=== PATIENT | female | born 1955 | race Caucasian/White ===

== ENCOUNTER 2022-01-21 09:22 | Outpatient (CLI) | payer MEDICARE, SELFPAY | END 2022-01-21 09:23 | disposition home or self-care (01) | LOC: INJ CL 09:23 | PROVIDERS: PCP Physician Assistant Medical; Visit Provider Family Medicine | DX: M53.3 Sacrococcygeal disorders, not elsewhere classified (principal) | CPT/HCPCS: 27096; J0702; Q9966 ==

== ENCOUNTER 2023-08-11 08:34 | Outpatient (CLI) | payer MEDICARE, SELFPAY ==
--- OUTSIDE RECORDS SUMMARY | 2023-08-11 08:38 | XMS_ITS | Referral Summary ---
Author Name Unknown Organization [facility] Address [address] [place] [address] Care Team Providers Care Forecast Analyst Name Role Phone No Ref-Primary, Physician Primary Care Provider Allergies Active Allergy Reactions Criticality Noted Date Comments [place] Extract Hives 09/01/2008 Social History Tobacco Use Types Packs/Day Years Used Date Smoking Tobacco: Never Smokeless Tobacco: Never Alcohol Use Standard Drinks/Week Comments Yes 0 (1 standard drink = 0.6 oz pur e alcohol) Sex and Gender Information Value Date Recorded Sex Assigned at Not on file Gender Identity Not on file Sexual Orientation Not on file Last Filed Vital Signs Vital Sign Reading Time Taken Comments Blood Pressure 149/66 01/31/2020 10:25 PM CDT Pulse - - Temperature 36.3 ??C (97.3 ??F) 01/31/2020 10:25 PM C DT Respiratory Rate 18 01/31/2020 10:25 PM CDT Oxygen Saturation 97% 01/31/2020 10:25 PM CDT Inhaled Oxygen Concentration - - Weight 72.6 kg (160 lb) 01/31/2020 10:25 PM CDT Height - - Body Mass Index - - Plan of Treatment Not on file Care Teams Forecast Analyst Relationship Specialty Start Date End Date No Ref-Primary, Physician PCP - General 01/31/20
--- OUTSIDE RECORDS SUMMARY | 2023-08-11 08:38 | XMS_ITS | Clinical Summary ---
Author Name Unknown Organization [facility] Address [address] [place] [address] Care Team Providers Care [employer] Medic Name Role Phone Gabby Melgar P.A.-C., P.A. Primary Care Pro vider Source Comments Patient records contain information from all sites at [facility]. For routine questions regarding patient records, call [phone] during business hours, M-F 8:00 AM - 5:00 PM Central Time. Record requests for emergency care only can be directed to [phone] at any time.[facility] Allergies Active Allergy Reactions Criticality Noted Date Comments Nsaids (Non-Steroidal Anti-Inflammatory Drug) Other (see comments) High 11/22/2013 Patient had bariatric surgery. Should not ever take NSAIDS due to high risk for gastric ulcers. [place] Hives (Reselect Reaction) Low 09/01/2008 Sulfa (Sulfonamide Antibiotics) Hives (Reselect Reaction) High 12/23/2018 Medications Medication Sig Dispensed Refills Start Date End Date Status cyanocobalamin (VITAMIN B12) 1,000 mcg/mL injection Inject 1,000 mcg intramuscularly every 30 (thirty) days. 0 08/20/2018 Active traMADol (ULTRAM) 50 mg tablet Take 50 mg by mouth every 6 (six) hours as needed. 0 09/22/2018 Active FLUoxetine (PROzac) 10 mg capsule Take 10 mg by mouth daily. 0 Active calcium carbonate (TUMS ULTRA) 1000 mg (400 mg calcium) chewable tablet Chew 1 tablet (400 mg of calcium total) 3 (three) times a day with meals. 270 tablet 3 07/26/2020 Active estrogens, conjugated, (PREMARIN) 1 g (0.625 mg/gram) vaginal cream Insert 1 g into the vagina at bedtime. 30 g 3 06/12/2021 Active peg 400-propylene glycol (SYSTANE) 0.4-0.3 % ophthalmic solution Administer 1 drop into both eyes 3 (three) times a day as needed for dry eyes. 0 Active sodium chloride (JOLANTA 128) 5 % ophthalmic solution Administer 1 drop into both eyes Medrol Dose Pack scheduling ONLY. 0 Active fluorometholone (FML) 0.1 % ophthalmic suspension Administer 1 drop into the right eye 3 (three) times a day for 14 days, THEN 1 drop 2 (two) times a day for 7 days, THEN 1 drop daily for 7 days. 5 mL 0 06/19/2023 4 Active Problems Problem Noted Date Diagnosed Date Preoperative Exam 04/23/2020 Last Assessment & Plan: Pre-op risk stratification - Risk of procedure - Low risk surgery - MET - > 4 - No hx of CAD, HF, CVA, DM , renal insuff - No active cardiac conditions - Cr : 1.03 on 04/23 - EKG: Ordered today. (which showed normal sinus. NO QTC prolongation) Taking Ciprofloxacin - TTE : none - Patient instructed to hold supplements, NSAIDs and ASA 7 days prior to surgery. Revised Cardiac Risk Index : 0 points. Class I risk . There is 3.9% chance of 30-day risk of , CA, or cardiac arrest. Patient may proceed the planned surgical procedure. Pyelonephritis Acute 04/18/2020 Last Assessment & Plan: - Patient recently hospitalized for bilateral flank pain and urine discoloration. - She was diagnosed with pyelonephritis. - Treated with IV ceftriaxone, and then switched to oral ciprofloxacin. (No QT prolongation) - CT showed large stone in the right renal pelvis. -- continue oral ciprofloxacin Pain Flank 07/10/2019 Degeneration Disc Lumbar 05/16/2019 Overview: Chronic low back pain, using tylenol #3 as needed. Usually gets 30 pills every 3 to 4 months. 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 - Plan for bilateral stent placement on 04/24. - H/o ureteral stent placement 3-4 years ago. Administrative Purpose Exam 12/11/2015 Other Specified Disorders Of Bladder 05/25/2014 Achlorhydria 11/22/2013 Deficiency Of Other Specified B Group Vitamins 0 11/22/2013 Surgery Bariatric Status Post 11/22/2013 Depression Major Recurrent 10/18/2013 Diverticulosis Of Large Inte tere Without Perforation Or Abscess Without Bleeding 11/20/2011 Overview: History of diverticular disease Nodule Pulmonary 09/10/2010 Overview: See by pulmonary, stable and benign, no further work-up or evaluation. Laure Banks MD .................... 06/07/2012 7:51 AM Migraine Headache 04/10/2009 Spondylolisthesis Congenital 01/07/2007 Encounters Date Type Department Care Team Description 07/20/2023 9:30 AM SOCIAL MEDIA ASSISTANT Office Visit Department of Ophthalmology in [place], [place] [address] [id number] Manas Aceves O.D. 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 Erosion Corneal Recurrent Right (Primary Dx); Endothelial Corneal Dystrophy Bilateral; Dry Eye Syndrome Bilateral; Meibomian Gland Dysfunction Left Eye Upper And Lower Eyelid; Meibomian Gland Dysfunction Right Eye Upper And Lower Eyelid; Blepharitis Left; Blepharitis Right Discharge Disposition: Home or Self Care 06/09/2023 Orders Only [facility] Gabby Melgar P.A.-C., P.A. from Last 3 Months Immunizations Name Administration Dates Next Due DTaP (Infanrix, Tripedia) 07/01/2005 Influenza, Unspecified 04/10/2009 SARS-COV-2 (COVID-19) - MODERNA(Discontinued) Family History Medical History Relation Name Comments Coronary artery disease Brother 1 Rigo Diabetes Brother 1 Rigo Diabetes Brother 2 Steve Skin cancer Father Renzo Diabetes Sister Karey Relation Name Status Comments Brother 1 Rigo Brother 2 Steve Father Renzo Sister Karey Social History Tobacco Use Types Packs/Day Years Used Date Smoking Tobacco: Former Cigarettes 0.5 5 Q uit: 1971 Smokeless Tobacco: Never Tobacco Cessation:Counseling Given: Not Answered Comments:only as a teenager Alcohol Use Standard Drinks/Week Comments Never 0 (1 standard drink = 0.6 oz pur e alcohol) Humiliation, Afraid, Rape, and Kick questionnair e Answer Date Recorded Within the last year, have y ou been afraid of your partner or ex-partner? No 07/23/2022 Within the last year, have y ou been humiliated or emotionally abused in other ways by your partner or ex-partner? No Within the last year, have y ou been kicked, hit, slapped, or otherwise physically hurt by your partner or ex-partner? No 07/23/2022 Within the last year, have y ou been raped or forced to have any kind of sexual activity by your partner or ex-partner? No 07/23/2022 Social Connection and Isolat ion Panel [NHANES] Answer Date Recorded In a typical week, how many times do you talk on the phone with family, friends, or neighbors? Three times a week 07/23/2022 How often do you get togethe r with friends or relatives? Once a week 07/23/2022 How often do you attend [facility] or christianity services? More than 4 times per year 07/23/2022 Do you belong to any clubs o r organizations such as pentecostalism groups, unions, fraternal or athletic groups, or school groups? Patient declined 07/23/2022 How often do you attend meet ings of the clubs or organizations you belong to? Patient declined 07/23/2022 Are you , , di vorced, , never , or living with a partner? 07/23/2022 AUDIT-C Answer Date Recorded Q1: How often do you have a drink containing alc ohol? Never 07/23/2022 Average Number of Drinks Not on file 023 Frequency of Binge Drinking Not on file 07/06 Overall Financial Resource Strain (CARDIA) Answe r Date Recorded How hard is it for you to pa y for the very basics like food, housing, medical care, and heating? Not very hard 07/23/2022 [facility] - Occupational Stress Questionnaire Answer Date Recorded Do you feel stress - tense, restless, nervous, or anxious, or unable to sleep at night because your mind is troubled all the time - these days? Not at all 07/23/2022 Exercise Vital Sign Answer Date Recorde d On average, how many days pe r week do you engage in moderate to strenuous exercise (like a brisk walk)? 4 days 07/23/2022 On average, how many minutes do you engage in exercise at this level? 60 min 07/23/2022 Hunger Vital Sign Answer Date Recorded Within the past 12 months, y ou worried that your food would run out before you got the money to buy more. Never true 07/23/19 23 Within the past 12 months, t he food you bought just didn't last and you didn't have money to get more. Never true 07/23/2022 PRAPARE - Transportation Answer Date Re corded In the past 12 months, has l ack of transportation kept you from medical appointments or from getting medications? No 07/06 In the past 12 months, has l ack of transportation kept you from meetings, work, or from getting things needed for daily living? No 07/23/2022 Housing Stability Vital Sign Answer Josiah e Recorded In the last 12 months, was t here a time when you were not able to pay the mortgage or rent on time? No 07/23/2022 In the last 12 months, how many places have you lived? 1 07/23/2022 In the last 12 months, was t here a time when you did not have a steady place to sleep or slept in a skilled nursing (including now)? No 07/23/2022 Nutrition Answer Date Recorded Nutrition: EVOO Fat Source Yes 07/23 On average, how many serving s of fruits and vegetables do you eat per day (serving size is equal to 1 cup or approximately the size of a tennis ball)? 2-3 07/23/2022 Dental Answer Date Recorded Dental: Regular Dentist Yes 07/10/19 Employment Answer Date Recorded Employment status Retired 07/23/2022 Education Answer Date Recorded What is the highest level of school you have completed or the highest degree you have received? Associate degree: occupational, technical, or vocational program 04/23/2020 Sex and Gender Information Value Date Recorded Sex Assigned at Female 04/23/2020 12:04 PM CDT Gender Identity Not on file Sexual Orientation Straight 07/27/2020 7: 48 PM SOCIAL MEDIA ASSISTANT Last Filed Vital Signs Vital Sign Reading Time Taken Comments Blood Pressure 105/51 11/01/2021 4:00 PM CDT Pulse 68 11/01/2021 4:00 PM CDT Temperature 36.4 ??C (97.5 ??F) 07/28/2022 2:37 PM CS T Respiratory Rate 16 09/08/2020 9:46 AM SOCIAL MEDIA ASSISTANT Oxygen Saturation 99% 11/01/2021 4:00 PM CDT Inhaled Oxygen Concentration - - Weight 72.3 kg (159 lb 6.3 oz) 07/28/2022 2:37 P M SOCIAL MEDIA ASSISTANT Height 155.3 cm (5' 1.14) 07/28/2022 2:37 PM CS T Body Mass Index 29.98 07/28/2022 2:37 PM SOCIAL MEDIA ASSISTANT Plan of Treatment Health Maintenance Due Date Last Done Comments CT Colonography 1954 Cologuard 1954 Depression Monitoring (PHQ-9) 1954 FIT 1954 Hepatitis C Screening 1955 Visit: Annual, age 65+ (or Medicare and <65) 1955 Visit: Medicare Annual Wellness 1955 Mammogram 03/15/2022 03/15/2021 (Perf ormed elsewhere), 03/07/2020 (Performed elsewhere) COVID-19 Vaccine ( season) 2023 05/15/2022, 11/01/2021, 04/01/2021, Additional history exists Fall Risk Screen (Annual) 07/06/2023 Lipid (Cholesterol) Screening 03/18/2024 03/18/2023, 03/17/2022, 03/15/2021, Additional history exists Fasting Glucose for Diabetes Screening 03/18/2026 03/18/2023, 07/28/2022, 03/17/2022, Additional history exists Colonoscopy 03/07/2030 03/07/2020 (Perf ormed elsewhere) Colorectal Cancer Screening 03/07/2030 DTaP,Tdap,and Td Vaccines (4 - Td or Tdap) 12/10/2031 12/09/2021, 04/14/2011, 07/01/2005, Additional history exists Zoster Vaccines Completed 12/28/2018, 08/06, 10/13/2014 Bone Density Scan (Osteoporosis Screen) Addressed 03/07/2020 (Performed elsewhere) Overridden with the intention of not completing the topic Pneumococcal vaccine (65+ years) Completed 03/15/2021, 03/06/2020 Influenza Vaccine Completed 03/18/2023, , 04/19/2021, Additional history exists Medical Devices Implanted Type Area Groundskeeping Maintenance Worker Device Identifier Shelf Expiration Date Model / Serial / Lot Hardware E.G. Pins/Screws/Ro ds Hardware e.g. pins/screws/r ods Back Explanted Type Area Groundskeeping Maintenance Worker Device Identifier Shelf Expiration Date Model / Serial / Lot Stnt Uret No Prc 7.0fx26 - [id number] Implanted:Qt y: 1 on 04/24/2020 by Ned Ordonez M.D. at [facility] Explanted:Qt y: 1 on 05/17/2020 at [facility] Ureteral Stent Left: [employer] [place] [employer] [id number] 11/28/2021 [id number] / / [id number] Stnt Uret No Prc 6fx26 - [id number] Implanted:Qt y: 1 on 05/17/2020 by Ned Ordonez M.D. at [facility] Explanted:Qt y: 1 on 05/28/2020 Ureteral Stent Left: [employer] [id number] 10/05/2022 [id number] / / [id number] Advance Directives For more information, please contact: [phone] Latest Code Status on File Code Status Date Activated Date Inactivated Comments Full Code 05/17/2020 11:17 AM 05/17/2020 4:34 PM Question Answer Comments Full Code: Discussed Code Status History Code Status Date Activated Date Inactivated Comments Full Code 05/08/2020 3:19 PM 05/09/2020 2:30 PM Question Answer Comments Full Code: Discussed Full Code 04/19/2020 3:04 AM 04/21/2020 4:32 PM Question Answer Comments Full Code: Discussed Care Teams [employer] Medic Relationship Specialty Start Date End Date Gabby Melgar P.A.-C., P.A. [address] [id number] PCP - General 02/20/22
--- OUTSIDE RECORDS SUMMARY | 2023-08-11 08:38 | XMS_ITS | Clinical Summary ---
Author Name Unknown Organization [facility] Address [address] [place] [address] Care Team Providers Care Roller Man Name Role Phone No Ref-Primary, Physician Primary Care Provider Allergies Active Allergy Reactions Criticality Noted Date Comments [place] Extract Hives 09/01/2008 Social History Tobacco Use [...] of Treatment Not on file Care Teams Roller Man Relationship Specialty Start Date End Date No Ref-Primary, Physician PCP - General 01/31/20
--- OUTSIDE RECORDS SUMMARY | 2023-08-11 08:39 | XMS_ITS | Clinical Summary ---
Author Name Unknown Organization [facility] Address [place], [place] [address] Care Team Providers Care Shovel Log Loader Operator Name Role Phone Kiki Corbin Primary Care Provider Allergies Active Allergy Reactions Criticality Noted Date Comments Nsaids (Non-Steroidal Anti-Inflammatory Drug) Other - Describe In Comment Field 11/22/2013 Patient had bariatric surgery. Should not ever take NSAIDS due to high risk for gastric ulcers. [place] Hives 09/01/2008 Sulfa (Sulfonamide Antibiotics) Edema 07/23/2006 Itching also Topiramate Mental Status Change 03/19/2010 Feels goofy Medications Medication Sig Dispensed Refills Start Date End Date Status SUMAtriptan (Imitrex) 50 mg tabletIndicatio ns:Intractable migraine with aura with status migrainosus Take 1 Tablet (50 mg) by mouth 2 times daily if needed for Migraine. Give at minimum 2hrs apart. Max Dose: 200mg per 24hrs. 10 Tablet 2 3 Active ciprofloxacin HCl (CIPRO) 500 mg tabletIndicatio ns:Acute UTI Take 1 Tablet (500 mg) by mouth two times daily. 10 Tablet 3 3 Active Additional Information Patient taking differently:500 mg Oral BID,PRN, Reported on 03/18/2023 estradioL (ESTRACE) 0.01% (0.1 mg/g) vaginal creamIndication s:Recurrent UTI Insert 1 g into the vagina once weekly. 42.5 g 3 3 Active trimethoprim 100 mg tabletIndicatio ns:Chronic UTI Take 1 Tablet (100 mg) by mouth once daily. 90 Tablet 3 3 Active busPIRone (BUSPAR) 15 mg tabletIndicatio ns:Anxiety Take 1 Tablet (15 mg) by mouth two times daily. 180 Tablet 3 3 Active cyanocobalamin (VITAMIN B12) 1,000 mcg/mL injectionIndica tions:Bariatric surgery status INJECT 1ML INTRAMUSCULARLY EVERY 4 WEEKS 3 mL 2 3 Active FLUoxetine (PROZAC) 40 mg capsuleIndicati ons:Anxiety,MDD (major depressive disorder), recurrent episode, moderate (HC) Take 1 Capsule (40 mg) by mouth every morning. 90 Capsule 3 3 Active traZODone (DESYREL) 50 mg tabletIndicatio ns:Anxiety,MDD (major depressive disorder), recurrent episode, moderate (HC) Take 2 Tablets (100 mg) by mouth at bedtime. 180 Tablet 0 3 Active tamsulosin (FLOMAX) 0.4 mg capsuleIndicati ons:Recurrent kidney stones Take 1 Capsule (0.4 mg) by mouth once daily after a meal. 30 Capsule 0 4 Active traMADoL (ULTRAM) 50 mg tabletIndicatio ns:Sciatica of left side Take 1 Tablet (50 mg) by mouth every 6 hours if needed for Pain. 50 Tablet 0 4 Active traMADoL (ULTRAM) 50 mg tabletIndicatio ns:Sciatica of left side Take 1 Tablet (50 mg) by mouth every 6 hours if needed for Pain. 50 Tablet 0 3 07/24/19 24 Discontinued Active Problems Problem Noted Date Diagnosed Date Generalized anxiety disorder 02/26/2018 Psychophysiological insomnia 02/26/2018 MDD (major depressive disord er), recurrent episode, moderate 04/22/2017 Nephrolithiasis 01/05/2016 Overview: Calcium oxalate stones Pain medication agreement 12/11/2015 Bladder spasms 05/25/2014 S/p Ivone-en-Y gastric bypass 11/22/2013 Achlorhydria 11/22/2013 Vitamin B12 deficiency 11/22/2013 Diverticulosis of colon (without mention of hemo rrhage) 11/20/2011 Overview: History of diverticular disease Lung nodule 09/10/2010 Overview: See by pulmonary, stable and benign, no further work-up or evaluation. Laure Banks MD .................... 06/07/2012 7:51 AM Migraine, unspecified, witho ut mention of intractable migraine without mention of status migrainosus 04/10/2009 Congenital spondylolisthesis 01/07/2007 Hyperlipidemia DDD (degenerative disc disease), lumbar Overview: Chronic low back pain, using tylenol #3 as needed. Usually gets 30 pills every 3 to 4 months. Resolved Problems Problem Noted Date Diagnosed Date Resolved Date Stage 4 chronic kidney disease 11/20/2021 04/04/2022 Nuclear senile cataract of both eyes 02/11/2018 04/04/2022 Epiretinal membrane (ERM) of left eye 02/11/2018 04/04/2022 Major depressive disorder, r ecurrent episode, in partial or unspecified remission 10/18/201303/08 Controlled substance agreement signed 05/05/2012 01/03/2014 Anxiety state, unspecified 05/05/2012 1 07/30/2013 Anemia, unspecified 11/10/2007 09/16/19 09 Major depressive disorder, r ecurrent episode, unspecified 10/29/2007 09/15/2008 Major depressive disorder, r ecurrent episode, unspecified 05/11/2007 05/30/2014 Displacement of lumbar inter vertebral disc without myelopathy 01/07/2007 04/10/2009 Headache(784.0) 07/23/2006 04/10/2009 Pain in joint, pelvic region and thigh 07/23/2006 04/10/2009 Depressive disorder, not elsewhere classified 07/23/19 07 10/29/2007 Heartburn 04/10/2009 Plantar fasciitis 05/30/2014 Snoring 04/10/2009 Glucose intolerance 05/30/20 14 Morbid obesity 05/30/2014 Encounter for screening colonoscopy 04/04/2022 Encounters Date Type Department Care Team Description 08/09/2023 Travel 07/26/2023 Travel 07/24/2023 Refill [facility] [address] [place] [address] Kiki Corbin PA Refill Request (Tramadol) 07/16/2023 1:00 PM MARINE ENGINEER Ancillary Procedure [facility] [address] [facility] [id number] 07/16/2023 10:45 AM MARINE ENGINEER Ancillary Procedure [facility] [address] [place] [address] 07/16/2023 Travel 07/14/2023 Travel 06/22/2023 Telephone [facility] [address] [place] [address] Kiki Corbin PA Imaging 06/15/2023 11:20 AM MARINE ENGINEER Office Visit [facility] [address] [place] [address] Kiki Corbin PA Leg Pain/problem (Hurt herself lifting her brother. Pain is on her L side, waist , travels down butt to the leg. Hard to lift L leg.) 06/15/2023 Travel 06/12/2023 Travel 06/05/2023 Travel 06/04/2023 11:05 AM MARINE ENGINEER E-Visit [facility] [address] [place] [address] Kiki Corbin PA eVisit for Back Pain from Last 3 Months Immunizations Name Administration Dates Next Due DTaP 07/01/2005 Influenza A (H1N1), Inactivated 05/17/2009 Influenza Virus, Unspecified 04/12/2016,03/16/20 15 Influenza, High-dose Quadriv alent Inactivated 04/12/2020 Influenza, IIV3 (Age 6-35 mos) 05/06/2011 Influenza, IIV3 (Age >=3 years) 04/08/20 13,03/30/2012,05/06/2011,2009,04/10/2009,05/17/2008,04/30/2007,1 ,05/06/1999 Influenza, IIV4 04/17/2019, 8,03/22/2018,2016,03/20/2016,04/02/2015 Influenza, Inactivated AIIV4 (Age 65+ Years) Preserv Free 03/18/2023,03/17/2022,04/19/2021 Influenza,CCIIV4 PRESERV FREE 03/20/2017 Pneumococcal Poly,23-Valent (Pneumovax) 03/15/2021 Pneumococcal conj 13-Valent (Prevnar 13) 03/06/2020 Td (Age >=7 Years) 12/09/2021,06/05/2005, 996 Tdap 04/14/2011,07/01/2005 Tuberculin (PPD) 07/09/2010 Zoster (Shingrix-RZV, recombinant) 12/28/2018, Zoster (Zostavax-ZVL, live) 10/13/2014 Family History Medical History Relation Name Comments Heart Disease Brother 1 LA @ 52 Alcoholism Brother 2 Diabetes Brother 2 Heart Disease Mother first LA at ag e 48 Alzheimer's disease Sister 1 Heart Disease Sister 1 LA @ 58 and PV D Alzheimer's disease Sister 2 Depression Sister 2 ECT treatments, then memory decline Diabetes Sister 2 Psychiatric illness Sister 3 dementia Cancer-breast No Family History Relation Name Status Comments Brother 1 Alive Brother 2 Brother 3 Alive Father (Age 82) alcohol re lated Mother (Age 64) LA @ 44 Sister 1 Sister 2 Sister 3 Alive Social History Tobacco Use Types Packs/Day Years Used Date Smoking Tobacco: Former Cigarettes Q uit: 07/06/1973 Smokeless Tobacco: Never Tobacco Cessation:Counseling Given: Yes Comments:quit 30 years ago Alcohol Use Standard Drinks/Week Comments No 0 (1 standard drink = 0.6 oz pur e alcohol) PHQ-2 Answer Date Recorded PHQ-2 TOTAL SCORE 1 03/18/2023 Social Connections Answer Date Recorded Frequency of Communication with Friends and Fami ly 0 03/18/2023 Financial Resource Strain Answer Date R ecorded Difficulty of Paying Living Expenses 3 03/18/2023 Difficulty of Paying Living Expenses Not on file 03/18/2023 Food Insecurity Answer Date Recorded Worried About Running Out of Food in the Last Ye ar 1 03/18/2023 Transportation Needs Answer Date Record ed Lack of Transportation (Medical) 1 03/18/2023 Housing Stability Answer Date Recorded Unable to Pay for Housing in the Last Year 1 03/18/2023 Sex and Gender Information Value Date Recorded Sex Assigned at Not on file Gender Identity Not on file Sexual Orientation Not on file Obstetrics History Para Term AB IAB SAB Ectopic Multiple Livin g Live Births 2 2 2 Date Outcome GA Total Labor Labor/2nd/3rd Weight Sex Delivery Anes PTL Saima A1 A5 Name Cl in Para Para Last Filed Vital Signs Vital Sign Reading Time Taken Comments Blood Pressure 136/75 06/15/2023 11:21 AM MARINE ENGINEER Pulse 58 06/15/2023 11:21 AM MARINE ENGINEER Temperature 36.3 ??C (97.4 ??F) 07/18/2019 2:05 PM CS T Respiratory Rate 16 09/09/2018 9:28 AM MARINE ENGINEER Oxygen Saturation 99% 03/18/2023 10:05 AM CDT Inhaled Oxygen Concentration - - Weight 73.5 kg (162 lb) 06/15/2023 11:21 AM MARINE ENGINEER Height 156 cm (5' 1.42) 03/18/2023 10:05 AM CDT Body Mass Index 30.2 03/18/2023 10:05 AM CDT Plan of Treatment Upcoming Encounters Date Type Department Care Team (Late st Contact Info) Description 08/11/2023 9:00 AM MARINE ENGINEER Office Visit [facility] [address] [place] [phone] Manas [place] MD [address] [place] [address] Arrived Health Maintenance Due Date Last Done Comments COVID-19 vaccine series (2022- season) 2023 05/15/2022, 11/01/2021, 04/01/2021, Additional history exists BMI (ht and wt on same day) for age 18+ 03/18/2024 03/18/2023, 03/17/2022, 03/15/2021, Additional history exists Mammogram for age 45-75 03/18/2024 03/18/20 23, 03/17/2022, 03/15/2021, Additional history exists Medicare Wellness for age 65+ 03/18/2024, 03/17/2022, 03/15/2021, Additional history exists Depression screening for age 12+ 03/20/2024 03/20/2023, 03/19/2023, 03/18/2023, Additional history exists Colonoscopy through age 75 10/02/2027 10/01/2017 Lipids for age 45-75 03/18/2028 03/18/2023, 03/17/2022, 03/15/2021, Additional history exists Tetanus booster 12/10/2031 12/09/2021, 04/05, 07/01/2005, Additional history exists Tdap Completed 04/14/2011, 07/01/2005 Hepatitis C screening for ag e 18-79 Completed 06/25/2018 Zoster (shingles) series for age 50+ Completed 12/28/2018, 08/20/2018, 10/13/2014 DEXA/DXA scan for age 65+ Completed 2019, 12/21/2014, 10/29/2007 Pneumococcal series for age 65+ Completed , 03/06/2020 Influenza for age 65+ Completed 03/18/2023 , 03/17/2022, 04/19/2021, Additional history exists Medical Devices Implanted Type Area Gps Navigation Installer Device Identifier Shelf Expiration Date Model / Serial / Lot [id number] [facility] 14x26 [[id number]] Implanted:Qty: 1 on 11/10/2007 at [facility] Explanted:at [facility] (Quantity not on file) Spine [employer] 08/03/2011 [id number]# / [id number] / Connector Small Offset Implanted:Qty: 6 on 11/10/2007 at [facility] Explanted:at [facility] (Quantity not on file) Spine [id number] / / Description:CONNECTOR SMALL OFFSET José Miguel La Rad 60mm 108mm Radius - [id number] Implanted:Qty: 2 on 11/10/2007 at [facility] Spine HOW[employer]ICA [id number]# / / [id number] one Canclls Crushed 30cc [[id number]] Implanted:Qty: 1 on 11/10/2007 at [facility] Explanted:at [facility] (Quantity not on file) Spine Allosource 01/31/2012 [id number]# / [id number] / [id number] one Canclls Crushed 30cc [] Implanted:Qty: 1 on 11/10/2007 at [facility] Explanted:at [facility] (Quantity not on file) Spine Allosource 01/31/2012 [id number]# / [id number] / [id number] Precision 16x26 Fz [[id number]] Implanted:Qty: 1 on 11/10/2007 at [facility] Explanted:at [facility] (Quantity not on file) Spine [employer] 08/04/2011 [id number]# / [id number] / Infuse Bone Graft Med Implanted:Qty: 1 on 11/10/2007 at [facility] Spine Medtronic 02/03/2010 [id number] / / [id number] Description:INFUSE BONE CHRIS T MED Screw Low Profile 6.5x30mm [id number] - [id number] Implanted:Qty: 1 on 11/10/2007 at [facility] Spine SOFAMOR DANEK [id number]# / / Washer 17mm - [id number] Implanted:Qty: 1 on 11/10/2007 at [facility] Spine SOFAMOR DANEK [id number]# / / Screw Post 6.5x40mm Std Trio Thoraco-Lmbr - [id number] Implanted:Qty: 5 on 11/10/2007 at [facility] Spine [employer] [id number]# / / Screw Post 6.5x45mm Std Trio Thoraco-Lmbr - [id number] Implanted:Qty: 1 on 11/10/2007 at [facility] Spine [employer] [id number]# / / Kit Realize Gastric Band C Dissector - [id number] Implanted:Qty: 1 on 11/16/2008 at [facility] Abdomen [employer] [id number]# / / [id number] Mesh Ventral 60 Seamguard [employer] White/Blue - [id number] Implanted:Qty: 1 on 11/21/2013 at [facility] N/A: Abdomen [employer] [id number] # / / [id number] Stent Uret [id number] Percuflex Hydroplus - [id number] Implanted:Qty: 1 on 01/11/2016 by Umer Stanley MD at [facility] Left: Ureter [facility] 09/17/2018 [id number]# / / [id number] Procedures Procedure Name Priority Date/Time Associated Diagnosis Comments AMB EPIDURAL STEROID INJECTION Routine 08/11/2023 8:29 AM MARINE ENGINEER Sciatica of left side MR SPINE LUMBAR WO Routine 07/16/2023 1: 53 PM MARINE ENGINEER Sciatica of left side XR SPINE LUMBAR 3 VIEWS Routine 07/16/2023 11:04 AM MARINE ENGINEER Sciatica of left side from Last 3 Months Results * MR SPINE LUMBAR WO (07/16/2023 1:53 PM MARINE ENGINEER) Anatomical Region Laterality Modality Spine, LUMBAR SPINE Magnetic Res onance 07/16/2023 2:16 PM MARINE ENGINEER Impressions 07/16/2023 2:16 PM MARINE ENGINEER 1. Normal alignment. No fractures. 2. Mature postop changes L4-5 and L5-S1. Associated laminectomies. 3. Lumbar spondylosis. 4. At L1-2, mild narrowing of the right neural foramen 5. At L3-4, disc degeneration. Diffuse disc bulge and endplate osteophytic ridging. No narrowing of the spinal canal. No neural foraminal narrowing. 6. No spinal canal or neural foraminal narrowing at the remaining levels Dictated by Marcio Montano MD @ 07/16/2023 2:16:20 PM (Electronically Signed) Narrative 07/16/2023 2:16 PM MARINE ENGINEER For Patients: ??As a result of the Cures Act, medical imaging exams and procedure reports are released immediately into your electronic medical record. ??You may view this report before your referring provider. ??If you have questions, please contact your health care provider. INDICATION: Left sciatica. Left-sided weakness. COMPARISON: 12/17/2021. Technique Sagittal T1, T2, and STIR sequences. Axial T1 and T2 weighted sequences. FINDINGS: Normal vertebral body alignment. No fractures. No vertebral body loss of height. No spondylolisthesis. No ligamentous injury. Normal marrow signal. No suspicious osseous lesions. Mature postoperative changes of diskectomy and interbody fusion L4-5 and L5-S1 with laminectomy and posterior josé miguel and transpedicular screw fixation L4-S1. Associated laminectomies. Associated mild edema within the posterior soft tissues operative bed. No suspicious osseous lesions. Number conus terminates at L1. T11-12: Disc degeneration and posterior disc bulge. No narrowing of spinal canal. Mild narrowing of bilateral foramina. T12-L1: No spinal canal neural foraminal narrowing. L1-2: Disc degeneration diffuse disc bulge eccentric to the right. No narrowing of the spinal canal. Mild narrowing of the right neural foramen. No narrowing of the left neural foramen. L2-3: Disc degeneration. Posterior disc bulge. No narrowing of the spinal canal. No neural foraminal narrowing. L3-4: Disc degeneration loss disc height. Mild Modic type 1 endplate changes. Diffuse disc bulge and endplate osteophytic ridging. No narrowing of spinal canal. No neural foraminal narrowing. L4-5: Postop changes. No narrowing of the spinal canal. No neural foraminal narrowing. L5-S1: Postoperative changes. No narrowing of spinal canal. No impingement of the traversing S1 nerve roots. No neural foraminal narrowing. Degenerative changes of the SI joints. Procedure Note Marcio Montano MD, PhD - 07/16/2023 For Patients: As a result of the Century Cures Act, medical imagingexams and procedure reports are released immediately into your electronicmedical record. You may view this report before your referring provider.If you have questions, please contact your health care provider. INDICATION: Left sciatica. Left-sided weakness. COMPARISON: 12/17/2021. Technique Sagittal T1, T2, and STIR sequences. Axial T1 and T2 weightedsequences. FINDINGS: Normal vertebral body alignment. No fractures. No vertebral body loss ofheight. No spondylolisthesis. No ligamentous injury. Normal marrow signal.No suspicious osseous lesions. Mature postoperative changes of diskectomy and interbody fusion L4-5 andL5-S1 with laminectomy and posterior josé miguel and transpedicular screw fixationL4-S1. Associated laminectomies. Associated mild edema within the posterior soft tissues operative bed. No suspicious osseous lesions. Number conus terminates at L1. T11-12: Disc degeneration and posterior disc bulge. No narrowing of spinalcanal. Mild narrowing of bilateral foramina. T12-L1: No spinal canal neural foraminal narrowing. L1-2: Disc degeneration diffuse disc bulge eccentric to the right. Nonarrowing of the spinal canal. Mild narrowing of the right neural foramen.No narrowing of the left neural foramen. L2-3: Disc degeneration. Posterior disc bulge. No narrowing of the spinalcanal. No neural foraminal narrowing. L3-4: Disc degeneration loss disc height. Mild Modic type 1 endplatechanges. Diffuse disc bulge and endplate osteophytic ridging. No narrowingof spinal canal. No neural foraminal narrowing. L4-5: Postop changes. No narrowing of the spinal canal. No neuralforaminal narrowing. L5-S1: Postoperative changes. No narrowing of spinal canal. No impingementof the traversing S1 nerve roots. No neural foraminal narrowing. Degenerative changes of the SI joints. IMPRESSION: 1. Normal alignment. No fractures. 2. Mature postop changes L4-5 and L5-S1. Associated laminectomies. 3. Lumbar spondylosis. 4. At L1-2, mild narrowing of the right neural foramen 5. At L3-4, disc degeneration. Diffuse disc bulge and endplate osteophyticridging. No narrowing of the spinal canal. No neural foraminal narrowing. 6. No spinal canal or neural foraminal narrowing at the remaining levels Dictated by Marcio Montano MD @ 07/16/2023 2:16:20 PM (Electronically Signed) Kiki GUERRERO MR * XR SPINE LUMBAR 3 VIEWS (07/16/2023 11:04 AM MARINE ENGINEER) Anatomical Region Laterality Modality LUMBAR SPINE Computed Radiogr aphy 07/16/2023 3:06 PM MARINE ENGINEER Addenda Addendum by Antonio Garcia MD on 07/16/2023 3:08 PM MARINE ENGINEER For Patients: ??As a result of the 21st Century Cures Act, medical imaging exams and procedure reports are released immediately into your electronic medical record. ??You may view this report before your referring provider. ?? If you have questions, please contact your health care provider. New foci of radiodensity possibly some nonobstructing radiopaque calculi projecting over the left kidney. These are minimally more prominent or new since prior exam. Dictated by Antonio Garcia MD @ Jul 16 2023 ??3:08PM (Electronically Signed) Pediatric and Body Radiology [email or web address] ?? Impressions 07/16/2023 3:06 PM MARINE ENGINEER No visualized fracture. Alignments anatomic. Joint spaces unremarkable. Posterior lumbar stabilization hardware remains intact. Posterior hardware placement at L4 through S1 levels with interbody bone graft and anterior stabilization changes at L5-S1 Stable anatomic postoperative alignment No acute or suspicious bone lesion. COMPARISON: 12/09/2021. Dictated by Antonio Garcia MD @ Jul 16 2023 ??3:06PM (Electronically Signed) [facility]iology [email or web address] ?? Narrative 07/16/2023 3:06 PM MARINE ENGINEER For Patients: ??As a result of the Cures Act, medical imaging exams and procedure reports are released immediately into your electronic medical record. ??You may view this report before your referring provider. ??If you have questions, please contact your health care provider. 3 VIEWS lumbar spine INDICATION: Sciatic pain Procedure Note Antonio Garcia MD - 07/16/2023 For Patients: As a result of the Cures Act, medical imagingexams and procedure reports are released immediately into your electronicmedical record. You may view this report before your referring provider.If you have questions, please contact your health care provider. 3 VIEWS lumbar spine INDICATION: Sciatic pain IMPRESSION: No visualized fracture. Alignments anatomic. Joint spaces unremarkable. Posterior lumbar stabilization hardware remains intact. Posterior hardware placement at L4 through S1 levels with interbody bonegraft and anterior stabilization changes at L5-S1 Stable anatomic postoperative alignment No acute or suspicious bone lesion. COMPARISON: 12/09/2021. Dictated by Antonio Garcia MD @ Jul 16 2023 3:06PM (Electronically Signed) Pediatric [facility] Body Radiology [email or web address] Kiki GUERRERO GENERAL IMAGING from Last 3 Months Advance Directives Documents on File Type Date Recorded Patient Events Specialist Expl anation Healthcare Directive 12/07/2013 9:47 PM 11/03 10/17 Latest Code Status on File Code Status Date Activated Date Inactivated Comments Full Code 10/01/2017 11:45 AM 10/01/2017 4:25 PM Code Status History Code Status Date Activated Date Inactivated Comments Full Code 04/21/2017 5:24 PM 04/24/2017 6:38 PM Full Code 02/05/2017 1:51 PM 02/05/2017 7:45 PM Full Code 01/11/2016 10:13 AM 01/11/2016 5:55 PM Full Code 11/21/2013 9:50 AM 11/23/2013 6:27 PM Care Teams Shovel Log Loader Operator Relationship Specialty Start Date End Date Kiki Corbin PA [address] [place] [address] PCP - General Family Practice 08/22/13
--- OUTSIDE RECORDS SUMMARY | 2023-08-11 08:39 | XMS_ITS | Encounter Summary ---
Author Name Unknown Organization [facility] Address [address] [place] [address] Care Team Providers Care Route Rider Supervisor Name Role Phone Gabby Melgar P.A.-C., P.A. Primary Care Pro vider Reason for Referral * Outpatient (Routine) - Authorized Specialty Diagnoses / Procedures Referred By Contac t Referred To Contact Family Medicine Gabby Melgar P.A.-C., P.A. [address] [phone] [facility] Region Referral ID Status Reason Start Date Expiration Date V isits Requested Visits Authorized [id number] Authorized 06/09/2023 06/08/2026 1 1 Scheduling Instructions Medicare annual provider visit/HCC gaps Do not schedule prior to due date to ensure insurance coverage Visit: Medicare Annual Wellness Never done. STRIAL ENGINEERING ANALYST Encounter Details Date Type Department Care Team (Late st Contact Info) Description 06/09/2023 Orders Only [facility] MNT Gabby Melgar P.A.-C., P.A. [address] [phone] Social History Tobacco Use Types Packs/Day Years Used Date Smoking Tobacco: Former Cigarettes 0.5 5 Q uit: 1970 Smokeless Tobacco: Never Comments:only as a teenager Alcohol Use Standard [...] week 07/23/2022 How often do you attend chur ch or nondenominational services? More than 4 times per year 07/23/2022 Do you belong to any clubs o r organizations such as voodoo groups, unions, fraternal or athletic groups, or [...] care, and heating? Not very hard 07/23/2022 [facility] - Occupational Stress [...] money to buy more. Never true 07/23/19 Within the past 12 months, t he [...] place to sleep or slept in a group home (including now)? No 07/23/2022 Nutrition Answer Date [...] Sexual Orientation Straight 07/27/2020 7: 48 PM INDUSTRIAL ENGINEERING ANALYST documented as of this encounter Plan of Treatment Scheduled Referrals Name Type Priority Associated Diagnoses Orde r Schedule Family Medicine office visit (clinic) Outpatient Referral Routine Expected: 07/07/2023, Expires: 12/06/2023 documented as of this encounter Visit Diagnoses Not on filedocumented in this encounter Care Teams Route Rider Supervisor Relationship Specialty Start Date End Date Gabby Melgar P.A.-C., P.A. [address] [phone] PCP - General 02/20/22 documented as of this encounter
--- OUTSIDE RECORDS SUMMARY | 2023-08-11 08:39 | XMS_ITS | Referral Summary ---
Author Name Unknown Organization [facility] Address [address] [place] [address] Care Team Providers Care Hunter Guide Name Role Phone Gabby Melgar P.A.-C. P.A. Primary Care Pro vider Source Comments Patient records contain information from all sites at [facility]. For routine questions regarding patient records, call [phone] during business hours, M-F 8:00 AM - 5:00 PM Central Time. Record requests for emergency care only can be directed to [phone] [address] time[address] Encounters Date Type Department Care Team Description 07/20/2023 9:30 AM STEWARD/STEWARDESS CHIEF CARGO VESSEL Office Visit Department of Ophthalmology in [place], [place] [address] [phone] Manas Aceves O.D. 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 from Last 3 Months Allergies Active Allergy Reactions Criticality Noted Date Comments Nsaids (Non-Steroidal Anti-Inflammatory Drug) Other (see comments) High 11/22/2013 Patient had bariatric surgery. Should not ever take NSAIDS due to high risk for gastric ulcers. [place] Hives (Reselect Reaction) Low 09/01/2008 Sulfa (Sulfonamide [...] 3.9% chance of 30-day risk of , [place], or cardiac arrest. Patient may proceed the [...] AM Migraine Headache 04/10/2009 Spondylolisthesis Congenital 01/07/2007 Immunizations Name Administration Dates Next Due DTaP (Infanrix, Tripedia) 07/01/2005 Influenza, Unspecified 04/10/2009 SARS-COV-2 (COVID-19) - MODERNA(Discontinued) Social History Tobacco Use Types Packs/Day Years [...] 07/23/2022 How often do you attend chur or protestant services? More than 4 times per year 07/23/2022 Do you belong to any clubs o r organizations such as mu-ism groups, unions, fraternal or athletic groups, or [...] care, and heating? Not very hard 07/23/2022 [facility] Occupat ional Health - Occupational Stress [...] place to sleep or slept in a detention (including now)? No 07/23/2022 Nutrition Answer Date [...] Sexual Orientation Straight 07/27/2020 7: 48 PM STEWARD/STEWARDESS CHIEF CARGO VESSEL Last Filed Vital Signs Vital Sign Reading Time Taken Comments Blood Pressure 105/51 11/01/2021 4:00 PM CDT Pulse 68 11/01/2021 4:00 PM CDT Temperature 36.4 ??C (97.5 ??F) 07/28/2022 2:37 PM CS T Respiratory Rate 16 09/08/2020 9:46 AM STEWARD/STEWARDESS CHIEF CARGO VESSEL Oxygen Saturation 99% 11/01/2021 4:00 PM CDT Inhaled Oxygen Concentration - - Weight 72.3 kg (159 lb 6.3 oz) 07/28/2022 2:37 P M STEWARD/STEWARDESS CHIEF CARGO VESSEL Height 155.3 cm (5' 1.14) 07/28/2022 2:37 PM CS T Body Mass Index 29.98 07/28/2022 2:37 PM STEWARD/STEWARDESS CHIEF CARGO VESSEL Plan of Treatment Not on file Medical Devices Implanted Type Area Machinist Brake Device Identifier Shelf Expiration Date Model / Serial / Lot Hardware E.G. Pins/Screws/Ro ds Hardware e.g. pins/screws/r ods Back Explanted Type Area Machinist Brake Device Identifier Shelf Expiration Date Model / Serial / Lot Stnt Uret No Gw Prc 7.0fx26 - [id number] Implanted:Qt y: 1 on 04/24/2020 by Ned Ordonez M.D. at [facility] Explanted:Qt y: 1 on 05/17/2020 at [facility] Ureteral Stent Left: Ureter [employer] [id number] 11/28/2021 [id number] / / [id number] Stnt Uret No Gw Prc 6fx26 - [id number] Implanted:Qt y: 1 on 05/17/2020 by Ned Ordonez M.D. at [facility] Explanted:Qt y: 1 on 05/28/2020 Ureteral Stent Left: Ureter [employer] [id number] 10/05/2022 [id number] 630 / / [id number] Advance Directives For more information, please contact: [phone] Latest Code Status on File Code Status [...] Answer Comments Full Code: Discussed Care Teams Hunter Guide Relationship Specialty Start Date End Date Gabby Melgar P.A.-C., P.A. [address] [phone] PCP - General 02/20/22
--- OUTSIDE RECORDS SUMMARY | 2023-08-11 08:39 | XMS_ITS | Encounter Summary ---
Author Name Unknown Organization [facility] Address [address] [place] [address] Care Team Providers Care Visitor Services Specialist Name Role Phone Gabby Melgar P.A.-C., P.A. 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 [address] [place] [address] [facility] Region Referral ID Status Reason Start Date Expiration Date V isits Requested Visits Authorized [id number] Authorized 07/20/2023 07/19/2026 1 1 Scheduling Instructions Please check before scheduling to see if patient is already followed for routine eye care at an outside practice or if she wants to schedule routine exam here. 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 [address] [phone] [facility] Region Referral ID Status Reason Start Date Expiration Date Visits Re quested Visits Authorized [id number] Closed 06/19/2023 06/18/2026 1 1 Encounter Details Date Type Department Care Team (Latest Contact Info) Description 07/20/2023 9:30 AM WAGE HAND Office Visit Department of Ophthalmology in [place], [place] [address] [phone] Manas Aceves O.D. 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 More than 4 times per year 07/23/2022 Do you belong to any clubs o r organizations such as buddhist groups, unions, fraternal or athletic groups, or [...] care, and heating? Not very hard 07/23/2022 [facility] of Occupat ional Health - Occupational Stress [...] place to sleep or slept in a long term (including now)? No 07/23/2022 Nutrition Answer Date [...] Sexual Orientation Straight 07/27/2020 7: 48 PM WAGE HAND documented as of this encounter Progress Notes * Manas Aceves O.D. - 07/20/2023 9:30 AM CST Trina Chavez was seen today for Dry Eye #1 Erosion Corneal Recurrent Right Complete course of oral doxycycline and topical ophthalmic steroid as prescribed, then discontinue.Continue the use of Vincent-128 daily at bedtime with artificial tears first thing in the morning and as needed throughout the day. Call if recurrences. Next step would be referral to corneal specialistfor epithelial debridement. #2 Endothelial Corneal Dystrophy Bilateral Not visually significant and would not recommend referral for endothelial keratoplasty at this time. Monitor at routine yearly eye exams. 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 Recommend daily warm compresses using a commercially available mask, once daily lid hygiene using a commercially available product (wipe or spray), lipid-based artificial tears as needed for symptoms, taking short breaks from digital devices and/or high demand visual tasks where blink rate decreases (20-20-20 Rule), and modification of environmental factors that exacerbate dry eye symptoms as able (e.g., using a humidifier, avoiding ceiling fans or direct air flow from vents, etc.). Monitor annually. 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 Meibomian Gland Dysfunction Right Eye Upper And Lower Eyelid Blepharitis Left Blepharitis Right Expected: 07/20/2024 (Approximate), Expires: 10/18/2024 documented as of this encounter Visit Diagnoses Diagnosis Erosion Corneal Recurrent Right- Primary Endothelial Corneal Dystrophy Bilateral Dry Eye Syndrome Bilateral 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 [address] [phone] PCP - General 02/20/22 documented as of this encounter
--- OUTSIDE RECORDS SUMMARY | 2023-08-11 08:39 | XMS_ITS | Encounter Summary ---
Author Name Unknown Organization [facility] Address [address] [place] [address] Care Team Providers Care Surgical Brace Maker Name Role Phone Gabby Melgar P.A.-C., P.A. Primary Care Pro vider Encounter Details Date Type Department Care Team (Late st Contact Info) Description 12/10/2022 Orders Only [facility] P[facility] MNT Gabby Melgar P.A.-C., P.A. [address] [place] [phone] Screening Mammogram Breast Cancer Social History Tobacco Use Types Packs/Day Years [...] How often do you attend chur or episcopal services? More than 4 times per year 07/23/2022 Do you belong to any clubs o r organizations such as adventist groups, unions, fraternal or athletic groups, or [...] care, and heating? Not very hard 07/23/2022 [facility] Occupat ional Health - Occupational [...] place to sleep or slept in a [place] health care facility (including now)? No 07/23/2022 Nutrition Answer Date [...] Sexual Orientation Straight 07/27/2020 7: 48 PM FIELD CREW CHIEF documented as of this encounter Plan of Treatment Not on file documented as of this encounter Visit Diagnoses Diagnosis Screening Mammogram Breast Cancer documented in this encounter Care Teams Surgical Brace Maker Relationship Specialty Start Date End Date Gabby Melgar P.A.-C., P.A. [address] [phone] PCP - General 02/20/22 documented as of this encounter
--- OUTSIDE RECORDS SUMMARY | 2023-08-11 08:39 | XMS_ITS ---
Author Name Unknown Organization Unknown Patient Care team information Name Category Status Period Participants - - Proposed period not known -
--- OUTSIDE RECORDS SUMMARY | 2023-08-11 08:39 | XMS_ITS ---
Author Name Unknown Organization [facility] Address [address] [place] [address] Care Team Providers Care Clinical Product Manager Name Role Phone Unavailable Unavailable Unavailable Surgery Details Not on file Complications Check Surgery Details section. Procedure Estimated Blood Loss Check Surgery Details section. Procedure Findings Check Surgery Details section. Procedure Specimens Taken Check Surgery Details section.
--- OUTSIDE RECORDS SUMMARY | 2023-08-11 08:39 | XMS_ITS | Encounter Summary ---
Author Name Unknown Organization [facility] Address [address] [place] [address] Care Team Providers Care Transport Manager Name Role Phone Gabby Melgar P.A.-C., P.A. 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 [address] [phone] [facility] Referral ID Status Reason Start Date Expiration Date Visits Re quested Visits Authorized [id number] Closed 06/19/2023 06/18/2026 1 1 Scheduling Instructions Dry Eye follow-up (no drops in-office, use iCare) HEADER Reason for Visit * Reason Comments Eye Pain Encounter Details Date Type Department Care Team (Latest Contact Info) Description 06/19/2023 1:00 PM BOLT HEADER Office Visit Department of Ophthalmology in [place], [place] [address] [phone] Manas Aceves O.D. [address] [phone] Erosion Corneal Recurrent Right (Primary Dx); Endothelial [...] any clubs o r organizations such as presybeterian groups, unions, fraternal or athletic groups, or [...] care, and heating? Not very hard 07/23/2022 [facility] - Occupational Stress Questionnaire Answer Date Recorded [...] place to sleep or slept in a custodial (including now)? No 07/23/2022 Nutrition Answer Date [...] Sexual Orientation Straight 07/27/2020 7: 48 PM BOLT HEADER documented as of this encounter Patient Instructions * Patient Instructions* Manas Aceves O.D. - 06/19/2023 1:00 PM BOLT HEADER Vincent-128 ointment: Daily at bedtime both eyes (can discontinue left eye if not experiencing a visual benefit) Dry Eye Syndrome Recommendations: Warm compress TWICE daily both eyes for 10 minutes Commercially available masks (e.g., Carter mask* or Mediviz) are typically preferred (Note: a warm wash cloth may be used, but requires re-heating every 1-2 minutes to maintain therapeutic temperature) Lid hygiene / lid scrub twice daily x 3 weeks: Sprays: Avenova, Ocusoft Hypochlor Wipes: Mediviz, Cliradex Lite, Ocusoft Preservative-free artificial tears 3-4 times daily (more often as needed) Drops: Refresh Optive Advanced PF, Refresh Relieva PF, Systane Balance PF, Systane Complete PF, BioTrue Hydration Boost PF, Soothe XP PF 20-20-20 Rule while on digital devices or during prolonged near visual tasks (e.g., reading) Every 20 minutes, take a 20 second break, and look at something 20 ft away After 2 hours, take a 10-15 minute break Control environmental factors as able Avoid direct airflow from fans, vents, etc. Use a humidifier Depending on the severity and underlying cause of dry eye, additional therapies such as a short course of a topical ophthalmic steroid, punctal plugs, topical ophthalmic cyclosporin, and/or other therapeutics/treatments may be indicated. HEADER documented in this encounter Progress Notes * Manas Aceves O.D. - 06/19/2023 1:00 PM CST Trina Chavez was seen today for Eye Pain #1 Erosion Corneal Recurrent Right Recurrent erosion is likely the source of patient's right eye pain upon awakening and opening the eyes. 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 Rx oral doxycycline 50 mg by mouth twice daily for 21 days and topical ophthalmic steroid (FML 0.1% ophthalmic suspension 1 right eye 3 times daily for 2 weeks, twice daily for 1 week, once daily for 1 week, then discontinue) and follow-up in 3 weeks. Reviewed oral doxycycline precautions including since sensitivity. #2 Endothelial Corneal Dystrophy Bilateral Discussed with patient. With visual acuity at the present level (20/25+2 right eye, 20/20 left eye)and without central confluence of guttae with clinical edema, do not recommend surgical referral atthis time. Discussed that Vincent-128 may or may not provide subjective symptom improvement in that endothelial transplant surgery is the only definitive treatment. 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 Recommend warm compress using a commercially available mask twice daily both eyes for 10 minutes; lid hygiene using a commercially available product spray with dilute hypochlorite as it as active ingredient twice daily for 3 weeks; lipid-based artificial tears 3-4 times daily or more often as needed for symptoms; taking short breaks from digital devices and/or high demand visual tasks where blink rate decreases (20-20-20 Rule); and modification of environmental factors thatexacerbate dry eye symptoms as able (e.g., using a humidifier, avoiding ceiling fans or direct air flow from vents, etc.). Low-dose oral doxycycline and topical FML 0.1% ophthalmic suspension (see above) should also be helpful. Monitor in 3 weeks, sooner as needed. 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 [address] [phone] PCP - General 02/20/22 documented as of this encounter
== END 2023-08-11 08:35 | disposition home or self-care (01) ==
LOC: INJ CL 08:35
PROVIDERS: PCP Physician Assistant Medical; Visit Provider Family Medicine
DX: M54.16 Radiculopathy, lumbar region (principal); M51.36 Other intervertebral disc degeneration, lumbar region
CPT/HCPCS: 64483; J1100; Q9966